=== PATIENT | male | born 1950 | race Caucasian/White ===

== ENCOUNTER → 2016-09-02 | Outpatient (CLI) | payer BC ==
--- NOTE | 2016-09-02 11:14 | EKG ---
[address] [address] Measurements Intervals [place] Rate: 58 P: 42 MD: 190 QRS: 29 QRSD: 81 T: 54 QT: 391 QTc: 389 Interpretive Statements SINUS BRADYCARDIA No previous ECG available for comparison Electronically Signed On 09-02-16 12:36:15 MDT by Delbert Lozoya MD [email or web address]
== END ==
LOC: EKG 10:57
PROVIDERS: ATTEND Nurse Practitioner Family
DX: R07.89 Other chest pain (principal); R06.09 Other forms of dyspnea; R00.2 Palpitations; R00.1 Bradycardia, unspecified
CPT/HCPCS: 36415; 83880; 93005; 93010; 93270

== ENCOUNTER → 2016-09-07 | Outpatient (CLI) | payer BC ==
[2016-09-07 16:46] LABS: HEMOGLOBIN 14.3 g/dL (14.0-18.0); MEAN CORPUSCULAR HEMOGLOBIN 31.9 PG (27-31); MEAN CORPUSCULAR VOLUME 93.8 FL (80-90); MEAN PLATELET VOLUME 9.8 FL (7.4-12.2); RED BLOOD COUNT 4.48 10^6/uL (4.70-6.10)
[2016-09-07 17:05] LABS: BLOOD UREA NITROGEN 19 mg/dL (7-22); BUN/CREATININE RATIO 27.14 (6-20); CALCIUM 9.2 mg/dL (8.7-10.7); EST GLOMERULAR FILTRATION > 60 (>60 ml/min/1.73m(2)); MAGNESIUM 1.8 mg/dL (1.6-2.4)
== END ==
LOC: MOB LAB 16:01
PROVIDERS: ATTEND Specialist
DX: I95.9 Hypotension, unspecified (principal); I20.9 Angina pectoris, unspecified; R06.02 Shortness of breath; Z87.891 Personal history of nicotine dependence
CPT/HCPCS: 36415; 80048; 83735; 84443; 85027

== ENCOUNTER → 2016-09-23 | Outpatient (CLI) | payer BC | LOC: LAB 08:08 | PROVIDERS: ATTEND Specialist | DX: I95.9 Hypotension, unspecified (principal) | CPT/HCPCS: 36415; 82533 ==